=== PATIENT | female | born 1990 | race African-American/Black ===

== ENCOUNTER 2018-03-20 23:29 | Emergency (ER) | payer SELFPAY ==
[~2018-03-20] VITALS: Ht 165.1 cm; Wt 82.0 kg
[2018-03-21] MEDS ORDERED: BACITRACIN ZINC OINT UDPKT TOP ONE (03:30)
[2018-03-21 03:40] VITALS: BP 113/62
== END 2018-03-21 03:55 | disposition home or self-care (01) ==
LOC: ER 23:29
DX: S80.862A Insect bite (nonvenomous), left lower leg, initial encounter (principal); F17.200 Nicotine dependence, unspecified, uncomplicated; L03.116 Cellulitis of left lower limb; F12.10 Cannabis abuse, uncomplicated; W57.XXXA Bitten or stung by nonvenomous insect and other nonvenomous arthropods, initial encounter; Y93.89 Activity, other specified; Y92.89 Other specified places as the place of occurrence of the external cause; Y99.8 Other external cause status
CPT/HCPCS: 81025; 99283; Z7610